=== PATIENT | male | born 1975 | race Two or more races ===

== ENCOUNTER 2020-03-20 00:09 | Emergency (ER) | payer SELFPAY ==
[~2020-03-20] VITALS: Ht 177.8 cm; Wt 65.8 kg
[2020-03-20 00:24] VITALS: BP 127/82
[2020-03-20] MEDS ORDERED: TDAP [DIPH/PERTUSSIS/TET] 0.5 ML VIAL IM ONE (00:57)
[2020-03-20] MEDS: TDAP [DIPH/PERTUSSIS/TET] 0.5 ML VIAL IM ONE (01:02)
--- NOTE | 2020-03-20 01:33 | NUR ---
WOUND CARE PROVIDED BY EMT AT BED SIDE , PT NOEL WELL. PT IS MEDICALLY STABLE FOR D/C. Patient discharged to home in stable condition. Written and verbal after care instructions given. Patient verbalizes understanding of instruction.
== END 2020-03-20 01:39 | disposition home or self-care (01) ==
LOC: ER 00:13
DX: S61.200A Unspecified open wound of right index finger without damage to nail, initial encounter (principal); W26.8XXA Contact with other sharp object(s), not elsewhere classified, initial encounter; Y93.E8 Activity, other personal hygiene; Y92.89 Other specified places as the place of occurrence of the external cause; Y99.8 Other external cause status
CPT/HCPCS: 90715